=== PATIENT | female | born 1965 | race Caucasian/White ===

== ENCOUNTER 2021-03-30 05:28 | Inpatient (IN) | payer BC ==
[2021-03-30] MEDS ORDERED: Acetaminophen 500 MG Tab PO ONE (06:00)
[2021-03-30] MEDS ORDERED: Dextrose 5%-Lactated Ringers 1,000 ML IV SCH ×2 (06:00→11:00)
[2021-03-30] MEDS ORDERED: Scopolamine 1.5 MG Transdermal Patch TOP ONE (06:00)
[2021-03-30] MEDS ORDERED: Celecoxib 200 MG Cap PO ONE (06:00)
[2021-03-30] MEDS ORDERED: cefOXitin 2 GM in Sodium Chloride 0.9% 50 ML IV ONE (06:30)
[2021-03-30] MEDS ORDERED: cefOXitin 2 GM Vial ONE (06:41)
[2021-03-30] MEDS ORDERED: Glycopyrrolate 0.2 MG/ML 5 ML MDV ONE (07:02)
[2021-03-30] MEDS ORDERED: Dexamethasone 4 MG/ML SDV ONE (07:02)
[2021-03-30] MEDS ORDERED: Succinylcholine 200 MG/10 ML MDV ONE (07:02)
[2021-03-30] MEDS ORDERED: Ondansetron 4 MG/2 ML SDV ONE (07:02)
[2021-03-30] MEDS ORDERED: Rocuronium 50 MG/5 ML Vial ONE ×2 (07:02→09:14)
[2021-03-30] MEDS ORDERED: Propofol 200 MG/20 ML SDV ONE (07:02)
[2021-03-30] MEDS ORDERED: Neostigmine Methylsulfate 1 MG/ML 5 ML Syringe ONE (07:02)
[2021-03-30] MEDS ORDERED: fentaNYL 250 MCG/5 ML SDV ONE ×3 (07:03→08:14)
[2021-03-30] MEDS ORDERED: Ketamine 50 MG in Sodium Chloride 0.9% 49.5 ML IV SCH (07:45)
[2021-03-30] MEDS ORDERED: MAGNESIUM SULFATE IV SCH (07:45)
[2021-03-30] MEDS ORDERED: Ketamine 500 MG/5 ML MDV IV SCH (07:45)
[2021-03-30] MEDS ORDERED: SODIUM CHLORIDE 0.9% IV SCH (07:45)
[2021-03-30] MEDS ORDERED: Labetalol 20 MG/4 ML Syringe ONE (09:02)
[2021-03-30] MEDS ORDERED: Lactated Ringers 1,000 ML ONE (09:35)
[2021-03-30] MEDS ORDERED: Sugammadex Sodium 200 MG/2 ML VIAL ONE (09:38)
[2021-03-30] MEDS ORDERED: Cyclobenzaprine 10 MG Tab PO PRN (11:07)
[2021-03-30] MEDS ORDERED: ALPRAZolam 0.5 MG Tab PO PRN (11:17)
[2021-03-30] MEDS: Lisinopril 20 MG Tab PO SCH (11:52)
[2021-03-30] MEDS ORDERED: traMADol 50 MG Tab PO PRN (12:00)
[2021-03-30] MEDS ORDERED: Ondansetron 4 MG/2 ML SDV IVPUSH PRN (12:00)
[2021-03-30] MEDS ORDERED: hydrOXYzine HCL 100 MG/2 ML SDV IM PRN (12:00)
[2021-03-30] MEDS ORDERED: Labetalol 20 MG/4 ML Syringe IVPUSH PRN (12:00)
[2021-03-30] MEDS ORDERED: Glucagon,Human Recombinant 1 MG Vial IM PRN (12:00)
[2021-03-30] MEDS ORDERED: Pantoprazole 40 MG Vial IVPUSH SCH (12:00)
[2021-03-30] MEDS ORDERED: HYDROmorphone 0.5 MG/0.5 ML Syringe IVPUSH PRN (12:00)
[2021-03-30] MEDS ORDERED: Acetaminophen 500 MG Tab PO PRN (12:00)
[2021-03-30] MEDS ORDERED: 50% Dextrose in Water 50 ML Syringe IVPUSH PRN (12:00)
[2021-03-30] MEDS ORDERED: Calcium Gluconate 10% 1 GM/10 ML SDV IVPUSH PRN (12:00)
[2021-03-30] MEDS ORDERED: HYDROmorphone 1 MG/ML Syringe IV PRN (12:00)
[2021-03-30] MEDS ORDERED: diphenhydrAMINE 50 MG/ML SDV IVPUSH PRN (12:00)
[2021-03-30] MEDS ORDERED: Metoclopramide 10 MG/2 ML SDV IVPUSH PRN (12:00)
[2021-03-30] MEDS: Acetaminophen 500 MG Tab PO SCH ×2 (13:10→21:58)
[2021-03-30] MEDS: oxyCODONE 5 MG Tab PO PRN ×2 (13:10→20:39)
[2021-03-30] MEDS: cefOXitin 2 GM in Sodium Chloride 0.9% 50 ML IV SCH ×2 (14:47→20:34)
[2021-03-30] MEDS: Lactated Ringers 1,000 ML IV SCH (14:48)
[2021-03-30] MEDS ORDERED: MVI, Adult with Vitamin K 10 ML, Thiamine 200 MG, Zinc/Copper/Manganese/Selenium 1 ML i... IV SCH ×4 (16:00)
[2021-03-30] MEDS: Insulin Lispro 100 Unit/ML 3 ML KwikPen SUBCUT SCH ×2 (17:08→21:57)
[2021-03-30] MEDS: Heparin Sodium 5,000 Units/ML Vial SUBCUT SCH (17:10)
--- NOTE | 2021-03-30 17:40 | PCM.EKG ---
#1 Interpretation EKG Date: 03/30/21 Time: 07:09 Rhythm: NSR Rate (Beats/Min): 93 [place]: LAD-Left [place] Deviation (LAFB) P-Wave: Present QRS: Normal ST-T: Normal QT: Normal FL/PQ Interval: Normal Comparison: NA - No Prior EKG
[2021-03-31] MEDS: Lactated Ringers 1,000 ML IV SCH ×2 (00:39→13:11)
[2021-03-31] MEDS: cefOXitin 2 GM in Sodium Chloride 0.9% 50 ML IV SCH ×2 (01:31→08:03)
[2021-03-31] MEDS ORDERED: Iopamidol 612 MG/ML 50 ML SDV PO STA (01:43)
[2021-03-31] MEDS: oxyCODONE 5 MG Tab PO PRN (02:46)
--- NOTE | 2021-03-31 02:55 | CRLCR ---
For Patients: As a result of the Century Cures Act, medical imaging exams and procedure reports are released immediately into your electronic medical record. You may view this report before your referring provider. If you have questions, please contact your health care provider. Indication: Postoperative evaluation following Alyx-en-Y procedure. Will only. Technique: Four images were obtained. Oral contrast was administered. Comparison: None available Findings: The casino gaming inspector image demonstrates a surgical drain within the left upper quadrant. The 2nd image shows passage of contrast from the esophagus into the gastric pouch and contrast crosses the gastro jejunostomy. Subsequent images show progressive passage of contrast into the efferent loop. There is no evidence of contrast extravasation which would indicate a operatively. Impression: No leak identified following Alyx-en-Y gastric bypass. Dictated by Henry Null MD @ 03/31/2021 4:55:[address] Henry Null @ Mar 31 2021 4:55PM
[2021-03-31] MEDS: Insulin Lispro 100 Unit/ML 3 ML KwikPen SUBCUT SCH ×4 (04:40→21:25)
[2021-03-31] MEDS: Heparin Sodium 5,000 Units/ML Vial SUBCUT SCH ×3 (04:40→17:03)
[2021-03-31] MEDS: Acetaminophen 500 MG Tab PO SCH ×4 (04:41→21:25)
[2021-03-31] MEDS ORDERED: Ondansetron 4 MG Tab.DIS PO PRN (07:12)
[2021-03-31] MEDS ORDERED: hydrOXYzine HCl 25 MG Tab PO PRN (07:15)
[2021-03-31] MEDS: Celecoxib 200 MG Cap PO SCH ×2 (08:13→21:25)
[2021-03-31] MEDS: DULoxetine 30 MG Cap PO SCH (08:13)
[2021-03-31] MEDS: SCOPOLAMINE PATCH CHECK TOP SCH (08:18)
[2021-03-31] MEDS: Lisinopril 20 MG Tab PO SCH (08:20)
--- NOTE | 2021-03-31 08:43 | PN ---
DATE OF SERVICE: 03/31/2021 SUBJECTIVE: Roseann is postop day #1. Her upper GI was normal. Oral intake 760. Urine output 3200. RC drain put out 140 mL of a light pink drainage. Blood sugars since OR have been 180, 285, 268, and 209. She is getting Humalog coverage per sliding scale. Remainder of review of systems negative for any pertinent positives and negatives. OBJECTIVE: GENERAL: Roseann Barker is a pleasant 55-year-old female. She is alert and orientated. VITAL SIGNS: TPR is 96.8, 72, and 18. Blood pressure 135/70. HEENT: Negative. NECK: Supple. HEART: Regular rate and rhythm. LUNGS: Clear. ABDOMEN: Dressings dry and intact. Abdominal binder is on. RC drain as above. EXTREMITIES: Without peripheral edema. ASSESSMENT: Laparoscopic Alyx-en-Y gastric bypass for date 03/30/2021. Surgeon: Todd Gee MD. PLAN: 1. Discontinue D5LR. 2. Lactated Ringer's 100 mL per hour. 3. Type 2 gastric bypass diet without cereal. 4. Dressing off, may shower. 5. Zofran ODT 4 mg q.4 hours p.r.n. nausea. 6. Atarax 50 mg q.4 hours p.r.n. pain. 7. Communication order written to drink 3 med cups per hour or 1 every 20 minutes and record at bedside. 8. Addendum to oxycodone and tramadol, to use only if oral hydroxyzine is not controlling postop pain. 9. Continue to use incentive spirometer as directed. 10.Ambulate 6 times daily. 11.We will evaluate p.r.n. or in a.m. Maris Mcrae PA-C /[id number]
[2021-03-31] MEDS ORDERED: Pantoprazole 40 MG Delayed-Release Granules 1 Packet PO SCH (11:30)
[2021-03-31] MEDS ORDERED: MVI, Adult with Vitamin K 10 ML, Thiamine 200 MG, Zinc/Copper/Manganese/Selenium 1 ML i... IV SCH ×4 (16:00)
[2021-04-01] MEDS: Lactated Ringers 1,000 ML IV SCH (02:54)
[2021-04-01] MEDS: Insulin Lispro 100 Unit/ML 3 ML KwikPen SUBCUT SCH (04:54)
[2021-04-01] MEDS: Acetaminophen 500 MG Tab PO SCH (05:44)
[2021-04-01] MEDS: Heparin Sodium 5,000 Units/ML Vial SUBCUT SCH (05:45)
[2021-04-01] MEDS: Celecoxib 200 MG Cap PO SCH (08:19)
[2021-04-01] MEDS: DULoxetine 30 MG Cap PO SCH (08:19)
[2021-04-01] MEDS: Lisinopril 20 MG Tab PO SCH (08:19)
[2021-04-01] MEDS: SCOPOLAMINE PATCH CHECK TOP SCH (08:37)
[2021-04-01] MEDS ORDERED: Magnesium Hydroxide 400 MG/5 ML Susp 30 ML Cup PO ONE (09:00)
[2021-04-01] MEDS ORDERED: Cyanocobalamin (Vitamin B12) 1,000 MCG/ML SDV IM ONE (09:00)
--- NOTE | 2021-04-07 09:55 | DISCH ---
FINAL DIAGNOSES: 1. Morbid obesity. 2. Marked hepatomegaly. 3. Paraesophageal diaphragmatic hernia. 4. Mediastinal lipoma. 5. Small peritoneal nodule overlying lesser curvature of stomach. 6. Anxiety and depression. 7. Type 2 diabetes mellitus. 8. Fibromyalgia. 9. History of hypertension. 10.History of hyperlipidemia. OPERATIVE PROCEDURE: Done on 03/30, diagnostic laparoscopy with: 1. Laparoscopic Alyx-en-Y gastric bypass with long limb gastroenterostomy. 2. Elpidio-Cut needle liver biopsy. 3. Repair of paraesophageal diaphragmatic hernia. 4. Excision of mediastinal lipoma. 5. Excision of peritoneal nodule overlying the lesser curvature of the stomach. SUMMARY: This is a 55-year-old female presenting with longstanding morbid obesity and increasingly significant comorbidities. After preoperative evaluation and discussion, she wished to proceed with a gastric bypass procedure. This was done on the date of admission with the above procedures done concurrently. She did have quite extensive fatty infiltrated liver. Of note, her blood sugars postoperatively have normalized off any diabetic medications, running now in the 130 to 140 range on a step 2 diet again without any diabetic medications. At this point, she will be discharged home with instructions to stay on a liquid diet until the first appointment which will be with Maris Mcrae on 04/10/2021. Should be continuing her usual medications other than for holding the metformin and glipizide and hydrocodone/APAP, and should be for the pain requiring only Celebrex and Tylenol. /[id number]
--- NOTE | 2021-04-10 13:42 | OR ---
DATE OF PROCEDURE: 03/30/2021 SURGEON: Todd Gee MD PREOPERATIVE DIAGNOSIS: Morbid obesity. POSTOPERATIVE DIAGNOSES: 1. Morbid obesity. 2. Marked hepatomegaly. 3. Paraesophageal diaphragmatic hernia. 4. Mediastinal lipoma. 5. Peritoneal nodule on the anterior aspect of the lesser curvature of the stomach. PROCEDURE PERFORMED: Diagnostic laparoscopy with: 1. Laparoscopic Alyx-en-Y gastric bypass with long limb gastroenterostomy (26398). 2. Elpidio-Cut needle liver biopsy (90476). 3. Repair of paraesophageal diaphragmatic hernia (14540). 4. Excision of mediastinal lipoma (92093). 5. Excision of peritoneal nodule on the surface of the lesser curvature of the stomach (30419). ANESTHESIA: General. TRACTOR MECHANIC APPRENTICE: Maris Mcrae PA-C INDICATION FOR PROCEDURE: This is a 55-year-old female presenting with longstanding morbid obesity and increasingly significant comorbidities. After preoperative evaluation and discussion, she wished to proceed with a laparoscopic gastric bypass. Potential risks of the procedure including bleeding, infection, injury to underlying viscera, leaks from various GI tract closures, development of small bowel obstruction over time, as well as the possibility of cardiopulmonary, septic, or hemorrhagic complications leading to were discussed, and the patient wishes to proceed. DETAILS OF PROCEDURE: The patient was taken to the operating room and placed in a supine position. After general endotracheal anesthesia was induced, the abdomen was prepped and draped. The patient was placed in a lithotomy position. At 15 cm inferior and 5 cm left of the xiphoid process, a transverse incision was made and the peritoneal cavity entered under direct vision with an Optiview trocar and inflated to 15 mmHg pressure with CO2. The laparoscope was reinserted. No underlying trocar insertion site injuries were seen. Following this, bilateral transversus abdominis plane blocks were placed. The liver was noted to be markedly enlarged and fatty infiltrated. It had some fine nodularity on its surface, but there was not any evidence of associated portal hypertension. Elpidio-Cut needle biopsies were obtained from left lobe of the liver. Minimal bleeding from the biopsy sites was controlled with electrocautery. At this point, the omentum was retracted superiorly and divided in the midline up to the level of the transverse colon. This allowed identification of the small bowel to the ligament of Treitz. The small bowel was then traced out 150 cm distal to that point. It was divided transversely with a FLORA stapler. The small bowel was traced out an additional 150 cm where the [id number] enteroenterostomy was accomplished with internal firing of the Endo-FLORA 60 mm stapler. Common opening was then closed transversely with the same stapler and the angles anastomosed and mesenteric defect approximated with some 0 Ethibond stitch along with fibrin sealant. The divided end of the Alyx limb was then brought up through an antecolic approach to the level of the gastroesophageal junction without tension. The liver was retracted anteriorly. The patient was noted to have a 1 to 2 mm wide firm nodule on the lesser curvature of the stomach located in an area just above the incisura angularis. This was excised and sent for histologic evaluation. The patient was also noted at this point to have a paraesophageal hernia with prolapse of a portion of the gastric fundus and omentum in a plane anterior to the course of the esophagus. The hernia was reduced and the peritoneum overlying incised and reflected downward. During the course of the crural dissection, a mediastinal lipoma was encountered, and this was excised as well. An anterior repair of the diaphragmatic hernia was then accomplished with some 0 Ethibond sutures reinforced with PTFE pledgets. The gastrointestinal balloon catheter was then inflated to 15 mL and pulled up snugly against the EG junction. The gastric wall over the apex balloon was then marked with electrocautery and balloon catheter deflated and pulled up from the esophagus. The lesser curvature was then freed up from the adjacent omentum, and pouch formation was initiated with a transverse firing of the FLORA stapler at the level of the cauterized lucas at the gastric cardia and continued with additional firings up to and through the angle of His. Upon completion of the pouch, both staple lines were noted to be intact. The anvil of a 25 mm EEA stapler was then attached to [place] sump type tube. The latter was brought down through the mouth and taken out through a small opening in the gastric pouch, allowing the anvil likewise to be pulled down to within the gastric pouch. The Alyx limb was then opened, the main body of EEA stapler passed several centimeters into the lumen of the small bowel, brought up the anvil, united with it, thus creating a gastrojejunostomy. Upon removal of the stapler, double donuts of mucosa were noted within it. The small bowel was closed off with a vascular staple line. The gastrojejunostomy was then reinforced with some 3-0 Vicryl seromuscular stitch along with fibrin sealant. A leak test was accomplished with injection of 120 mL of air in the gastric pouch while it was submerged with cefoxitin- containing saline solution. No leaks were identified. A single El-Mcpherson drain was taken out through the left lateral trocar site and positioned adjacent to the gastrojejunostomy, and from there, up into the splenic fossa. The trocars were then sequentially removed and the peritoneal cavity deflated. The incisions were closed with some 4-0 Vicryl skin stitch which were also used to fix the drain. The patient was taken to the recovery room in satisfactory condition. Physician exceptional children teacher assistant, Maris Mcrae, played an essential role in assisting in this case, helping to position the patient, retract structures as needed, as well as suturing and cutting sutures when indicated. Her presence improved the patient's safety and decreased the operative time. Todd Gee MD /[id number]
== END 2021-04-01 09:50 | disposition home or self-care (01) | DRG 403 ==
LOC: JP.MS 05:28 → JP.SDS 05:28 → EDSTATUS 07:15 → JP.MS 09:50
PROVIDERS: ADMIT Surgery; ATTEND Surgery
PROC: 0D164ZA Bypass Stomach to Jejunum, Percutaneous Endoscopic Approach (ICD-10-PCS; principal; 2021-03-30)
PROC: 0FB24ZX Excision of Left Lobe Liver, Percutaneous Endoscopic Approach, Diagnostic (ICD-10-PCS; 2021-03-30)
PROC: 0BQT4ZZ Repair Diaphragm, Percutaneous Endoscopic Approach (ICD-10-PCS; 2021-03-30)
PROC: 0JB63ZZ Excision of Chest Subcutaneous Tissue and Fascia, Percutaneous Approach (ICD-10-PCS; 2021-03-30)
PROC: 0DBW4ZZ Excision of Peritoneum, Percutaneous Endoscopic Approach (ICD-10-PCS; 2021-03-30)
DX: E66.01 Morbid (severe) obesity due to excess calories (principal); F41.9 Anxiety disorder, unspecified; F32.9 Major depressive disorder, single episode, unspecified; G89.29 Other chronic pain; M79.7 Fibromyalgia; E11.9 Type 2 diabetes mellitus without complications; M54.5 Low back pain; K44.9 Diaphragmatic hernia without obstruction or gangrene; D17.4 Benign lipomatous neoplasm of intrathoracic organs; R16.0 Hepatomegaly, not elsewhere classified; E55.9 Vitamin D deficiency, unspecified; E78.5 Hyperlipidemia, unspecified; I10 Essential (primary) hypertension; Z68.42 Body mass index [BMI] 45.0-49.9, adult; Z79.84 Long term (current) use of oral hypoglycemic drugs; Z79.899 Other long term (current) drug therapy; Z87.890 Personal history of sex reassignment
CPT/HCPCS: 36415; 74240; 80053; 82947; 83735; 83880; 84100; 85027; 86850; 86900; 86901; 88304; 88305; 88307; 88313; 93005; 94762; A9270-GY; C9113; J0171; J0330; J0694; J1100; J1644; J1815; J1815-GY; J2405; J2704; J2710; J2795; J3010; J3411; J3420; J3475; J3490; J7050; J7120; J7121; Q9967